=== PATIENT | female | born 1950 | race Caucasian/White ===

== ENCOUNTER 2019-02-27 09:13 | Outpatient (CLI) | payer MEDICARE ==
--- NOTE | 2019-02-27 09:37 | RAD ---
Exam: Chest 2 views HISTORY:Pneumonia Comparison: None FINDINGS: Lungs: No masses or consolidation. Cardiac silhouette:Mild enlargement of cardiac silhouette Pulmonary vessels: Normal Pleural Spaces: Clear Pneumothorax: None Osseous abnormalities: None of acuity. IMPRESSION: No focal consolidation.
== END 2019-02-27 09:14 | disposition home or self-care (01) ==
LOC: BICRAD 09:13
PROVIDERS: ATTEND Allergy & Immunology
DX: J18.9 Pneumonia, unspecified organism (principal)
CPT/HCPCS: 71046

== ENCOUNTER 2019-07-22 13:05 | Outpatient (CLI) | payer MEDICARE ==
--- NOTE | 2019-07-22 13:54 | CT ---
CT ABDOMEN WITH IV CONTRAST 07/22/2019 CLINICAL INFORMATION: Epigastric and right upper quadrant abdominal pain for 3 months. History of partial colectomy as well as hysterectomy and cholecystectomy. COMPARISON: 01/01/2018 Technique: Multiple contiguous axial CT images are obtained through the abdomen and pelvis with IV contrast. Cor onal reformatted images are provided. FINDINGS: Lower Chest: Atelectasis is present at the left lung base. Vessels: Mild vascular calcifications are seen in the abdominal aorta. Abdomen: Portal vein:Patent Gallbladder: Surgically absent. Liver: Hypodense lesion posterior segment right hepatic lobe measuring 3.7 cm is again noted. This is stable compared to study in 2008 and was shown to represent a hemangioma on prior tagged red blood cell study. Spleen: within normal limits. Pancreas: within normal limits. Adrenals: within normal limits. Kidneys: A nonobstructing 4 mm calculus is seen in the midportion right kidney. Left kidney remains r otated. Bowel: There is colonic diverticulosis. Postsurgical changes likely related to prior hiatal hernia re pair are again seen and unchanged. Appendix: Not imaged on this exam. Peritoneum: No ascites or free air; no fluid collection. Mesentery and Retroperitoneum: No enlarged mesenteric or retroperitoneal lymph nodes. Abdominal Wall: within normal limits. Bones: Degenerative and postoperative changes lumbar spine are noted. There is slight retrolisthesis of L1 on L2 and L2 on L3. IMPRESSION: 1. No acute findings are seen in the abdomen. 2. Postsurgical changes related to cholecystectomy and probable prior hiatal hernia repair. 3. Hypodense lesion right hepatic lobe shown to represent a hemangioma on prior imaging studies. 4. Colonic diverticulosis. 5. Postoperative and degenerative changes lumbar spine.
[2019-07-22] MEDS ORDERED: Iopamidol 370 76% 100 ML VIAL ONE (15:16)
== END 2019-07-22 13:06 | disposition home or self-care (01) ==
LOC: BICCT 13:05
PROVIDERS: ATTEND Internal Medicine Gastroenterology
DX: R10.13 Epigastric pain (principal); K76.9 Liver disease, unspecified; K57.30 Diverticulosis of large intestine without perforation or abscess without bleeding; M47.816 Spondylosis without myelopathy or radiculopathy, lumbar region; Z98.890 Other specified postprocedural states
CPT/HCPCS: 74160; 82565; Q9967

== ENCOUNTER 2020-11-26 09:40 | Outpatient (CLI) | payer MEDICARE | END 2020-11-26 09:41 | disposition home or self-care (01) | LOC: NM 09:40 | PROVIDERS: ATTEND Family Medicine Sports Medicine | DX: M25.562 Pain in left knee (principal); N95.1 Menopausal and female climacteric states; G89.11 Acute pain due to trauma; M47.814 Spondylosis without myelopathy or radiculopathy, thoracic region; M47.816 Spondylosis without myelopathy or radiculopathy, lumbar region; Z96.653 Presence of artificial knee joint, bilateral | CPT/HCPCS: 78315; A9503 ==

== ENCOUNTER 2021-02-24 07:09 | Day surgery (SDC) | payer MEDICARE ==
[2021-02-24 08:19] VITALS: BP 167/86; TEMP 97.6
[2021-02-24] MEDS ORDERED: Iopamidol-M 200 41% 20 ML VIAL ONE (09:21)
== END 2021-02-24 10:05 | disposition home or self-care (01) ==
LOC: RAD 07:09
PROVIDERS: ATTEND Neurological Surgery
PROC: B02B1ZZ Computerized Tomography (CT Scan) of Spinal Cord using Low Osmolar Contrast (ICD-10-PCS; principal; 2021-02-24)
DX: M43.16 Spondylolisthesis, lumbar region (principal); M43.15 Spondylolisthesis, thoracolumbar region; M43.17 Spondylolisthesis, lumbosacral region; M48.04 Spinal stenosis, thoracic region; M48.05 Spinal stenosis, thoracolumbar region; M48.062 Spinal stenosis, lumbar region with neurogenic claudication; J45.909 Unspecified asthma, uncomplicated; K21.9 Gastro-esophageal reflux disease without esophagitis; G43.909 Migraine, unspecified, not intractable, without status migrainosus; Z79.899 Other long term (current) drug therapy; Z88.1 Allergy status to other antibiotic agents; Z88.8 Allergy status to other drugs, medicaments and biological substances; Z98.1 Arthrodesis status
CPT/HCPCS: 62304; 72132; 90471; 90732; G0009; Q9966

== ENCOUNTER 2021-07-13 08:25 | Outpatient (CLI) | payer MEDICARE | END 2021-07-13 08:26 | disposition home or self-care (01) | LOC: TBSIIMAG 08:25 | PROVIDERS: ATTEND Neurological Surgery | DX: M43.16 Spondylolisthesis, lumbar region (principal); M47.816 Spondylosis without myelopathy or radiculopathy, lumbar region; Z98.890 Other specified postprocedural states | CPT/HCPCS: 72100 ==

== ENCOUNTER 2021-10-14 13:09 | Outpatient (CLI) | payer MEDICARE | END 2021-10-14 13:10 | disposition home or self-care (01) | LOC: TBSIIMAG 13:09 | PROVIDERS: ATTEND Neurological Surgery | DX: M48.062 Spinal stenosis, lumbar region with neurogenic claudication (principal); M47.816 Spondylosis without myelopathy or radiculopathy, lumbar region; Z98.890 Other specified postprocedural states | CPT/HCPCS: 72100 ==

== ENCOUNTER 2021-12-17 10:58 | Day surgery (SDC) | payer MEDICARE ==
[2021-12-15 12:31] VITALS: BMI 32.4
[2021-12-17] MEDS ORDERED: Midazolam HCl 2 mg/2 ml Vial ONE (12:36)
[2021-12-17] MEDS ORDERED: fentaNYL Citrate/PF 100 MCG/2 ML SYRINGE ONE (12:37)
[2021-12-17] MEDS ORDERED: Bicitra 30 ML UDCUP ONE (13:07)
[2021-12-17] MEDS ORDERED: Famotidine/PF 20 mg/2ml Vial ONE (13:11)
[2021-12-17] MEDS ORDERED: Ondansetron PF 4 MG/2 ML Vial ONE (13:45)
[2021-12-17] MEDS ORDERED: Ketamine 50 MG/ML (10ML VIAL) ONE (14:04)
== END 2021-12-17 15:46 | disposition home or self-care (01) ==
LOC: RAD 10:58 → EDSTATUS 13:00 → RAD 15:46
PROVIDERS: ATTEND Neurological Surgery
PROC: B02B1ZZ Computerized Tomography (CT Scan) of Spinal Cord using Low Osmolar Contrast (ICD-10-PCS; principal; 2021-12-17)
DX: M54.16 Radiculopathy, lumbar region (principal); N20.0 Calculus of kidney; Z79.899 Other long term (current) drug therapy; Z88.1 Allergy status to other antibiotic agents; Z88.8 Allergy status to other drugs, medicaments and biological substances
CPT/HCPCS: 72120; 72132; 77002; 82565; J2250; J2405; S0028

== ENCOUNTER 2022-04-26 11:01 | Outpatient (CLI) | payer MEDICARE | END 2022-04-26 11:02 | disposition home or self-care (01) | LOC: MRI 11:01 | PROVIDERS: ATTEND Anesthesiology Pain Medicine | DX: M47.22 Other spondylosis with radiculopathy, cervical region (principal); M43.12 Spondylolisthesis, cervical region | CPT/HCPCS: 72052; 72141 ==

== ENCOUNTER 2022-12-05 09:44 | Outpatient (CLI) | payer MEDICARE | END 2022-12-05 09:45 | disposition home or self-care (01) | LOC: NM 09:44 | PROVIDERS: ATTEND Specialist | DX: T84.84XA Pain due to internal orthopedic prosthetic devices, implants and grafts, initial encounter (principal); Z96.653 Presence of artificial knee joint, bilateral | CPT/HCPCS: 78315; A9503 ==